=== PATIENT | female | born 1960 | race Caucasian/White ===

== ENCOUNTER 2018-01-10 18:53 | Emergency (ER) | payer BC ==
--- NOTE | 2018-01-10 19:31 | PDOC ---
Rapid Medical Evaluation Chief Complaint: Eye Problem Time Seen by Provider: 01/10/18 19:28 Medical Evaluation: 01/10/18 19:28 left eye redness and itchiness x 1 day. history of glaucoma Pe: redness to left sclera A: subconjuctival hemorrhage?? P: patient to the ER for further management of care. Discharge Disposition - Diagnosis Redness of eye, left - Referrals Referrals: Brent Raman MD [Primary Care Provider] - - Patient Instructions - Post Discharge Activity
[2018-01-10 19:32] VITALS: BP 133/73; PULSE 85; TEMP 98.2; BMI 27.4
[2018-01-10] MEDS ORDERED: FLUORESCEIN NA 1 EA STRIP OS ONE (20:56)
[2018-01-10] MEDS ORDERED: TETRACAINE 0.5% HCL 0.6ML DROPPER.BOTTLE OS ONE (20:56)
[2018-01-10] MEDS ORDERED: TETRACAINE 0.5% OPHTH SOLN 2 ML BOTTLE ONE (20:59)
--- NOTE | 2018-01-10 21:37 | PDOC ---
History of Present Illness - General History Source: Patient Exam Limitations: No Limitations - History of Present Illness Initial Comments: 01/10/18 22:00 Pt is a 57yo f with PMH of depression, ADHD bilateral cataracts s/p surgery presenting to ED with L eye redness. L eye started to turn red yesterday but has gotten worse. Pt denies pain, injury, foreign body sensation, vision loss, decreased vision, pain with movement, rashes, fevers, chills. Never happened before. Pt does not wear contacts, but wears glasses. 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 She is not using any eye drops. She had cataract surgery a few years ago. She is not taking blood thinners. PMD: Lamine PMH: see hpi PSH: cataract Meds: Strattera, Wellbutrin Social: denies Allergies: nkda <Caitlyn Coyne - Last Filed: 01/10/18 22:15> <Rain Brown - Last Filed: 01/10/18 23:14> - General Chief Complaint: Eye Problem Stated Complaint: Eye Problem Time Seen by Provider: 01/10/18 19:28 Past History - Past Medical History Cancer: Yes (rt breast) COPD: No Psychiatric Problems: Yes (PTSD/ADD/ADHD/Depression) - Suicide/Smoking/Psychosocial Hx Smoking History: Never smoked Have you smoked in the past 12 months: No Information on smoking cessation initiated: No Hx Alcohol Use: No Drug/Substance Use Hx: No Substance Use Type: None <Caitlyn Coyne - Last Filed: 01/10/18 22:15> <Rain Brown - Last Filed: 01/10/18 23:14> - Past Medical History Allergies/Adverse Reactions: Allergies Allergy/AdvReac Type Severity Reaction Status Date / Time No Known Allergies Allergy Verified 01/10/18 21:19 Home Medications: Ambulatory Orders NK [No Known Home Medication] 01/10/18 Review of Systems - Review of Systems Constitutional: No: Symptoms Reported HEENTM: Yes: See HPI, Other (L eye redness). No: Eye Pain, Blurred Vision, Tearing, Recent change in vision, Double Vision, Ear Pain Respiratory: No: Symptoms reported Cardiac (ROS): No: Symptoms Reported ABD/GI: No: Symptoms Reported : No: Symptoms Reported Musculoskeletal: No: Symptoms Reported Integumentary: No: Symptoms Reported Neurological: No: Symptoms reported <Caitlyn Coyne - Last Filed: 01/10/18 22:15> *Physical Exam - Vital Signs Last Vital Signs Temp Pulse Resp BP Pulse Ox 98.2 F 85 17 133/73 100 01/10/18 19:29 01/10/18 19:29 01/10/18 19:29 01/10/18 19:29 01/10/18 19:29 - Physical Exam General Appearance: Yes: Nourished, Appropriately Dressed. No: Apparent Distress HEENT: positive: EOMI, YAZMIN, TMs Normal, Other (L eye subconjunctival hemorrhage on medial side, not passing cornea. no pain with EOM. No foreign body seen, confirmed with fluorocein. Vision 20/40 ou. ). negative: Pale Conjunctivae, Photophobia, Scleral Icterus (R), Scleral Icterus (L), Sinus Tenderness, Orbits (no orbital tenderness) Neck: positive: Trachea midline, Supple. negative: Lymphadenopathy (R), Lymphadenopathy (L) Respiratory/Chest: positive: Lungs Clear, Normal Breath Sounds. negative: Crackles, Rales, Rhonchi, Stridor, Wheezing Cardiovascular: positive: Regular Rhythm, Regular Rate, S1, S2. negative: Edema , JVD, Murmur Vascular Pulses: Carotid (R): 2+, Carotid (L): 2+, Dorsalis-Pedis (R): 2+, Doralis-Pedis (L): 2+ Gastrointestinal/Abdominal: positive: Normal Bowel Sounds, Soft. negative: Guarding, Rebound, Tenderness Musculoskeletal: positive: Normal Inspection. negative: CVA Tenderness Extremity: positive: Normal Capillary Refill Integumentary: positive: Normal Color, Dry, Warm. negative: Rash Neurologic: positive: rack puller II-XII NML intact, Fully Oriented, Alert, Normal Mood/ Affect, Normal Response, Motor Strength 5/5 <Caitlyn Coyne - Last Filed: 01/10/18 22:15> - Vital Signs Last Vital Signs Temp Pulse Resp BP Pulse Ox 98.2 F 85 17 133/73 100 01/10/18 19:29 01/10/18 19:29 01/10/18 19:29 01/10/18 19:29 01/10/18 19:29 <Rain Brown - Last Filed: 01/10/18 23:14> ED Treatment Course - Medications Given in the ED: ED Medications Discontinued Medications Generic Name Dose Route Start Last Admin Trade Name Saritha PRN Reason Stop Dose Admin Fluorescein Sodium 1 ea 01/10/18 20:56 01/10/18 21:01 Fluorets - OS 01/10/18 20:57 1 ea ONCE ONE Administration Tetracaine HCl 1 drop 01/10/18 20:56 01/10/18 21:01 Tetravisc 0.5% Eye Drops - OS 01/10/18 20:57 1 drop ONCE ONE Administration <Rain Brown - Last Filed: 01/10/18 23:14> Medical Decision Making - Medical Decision Making 01/10/18 22:11 Pt is a 57yo f with PMH of depression, ADHD bilateral cataracts s/p surgery presenting to ED with L eye redness. L eye started to turn red yesterday but has gotten worse. Vitals: Selected Entries 01/10/18 19:29 Temperature 98.2 F Pulse Rate 85 Blood Pressure 133/73 Blood Pressure 93 Mean O2 Sat by Pulse 100 Oximetry (%) PE: subconjunctival hemorrhage on medial side of L eye, does not cross cornea , PERRLA, EOMI no pain with eye movements, normal conjunctiva, no swelling, no orbital tenderness, no foreign body seen. vision 20/40 OU. DDx: subconjunctival hemorrhage, Low suspicion for infectious process. no foreign body sensation, pt denies injury. Low suspicion for globe rupture or penetration. Fluorocein: no leaks. Pt globe intact, no penetration, no injury, no pain, no concern for infection. Pt has subconjunctival hemorrhage. She has an opthalmologist that she sees. Will follow up. Pt is hemodynamically stable and has follow up, can be dc home. Pt agrees with plan and understood return precautions. <Caitlyn Coyne - Last Filed: 01/10/18 22:15> *DC/Admit/Observation/Transfer - Discharge Dispostion Decision to Admit order: No <Caitlyn Coyne - Last Filed: 01/10/18 22:15> <Brown,Rain - Last Filed: 01/10/18 23:14> Diagnosis at time of Disposition: Redness of eye, left Subconjunctival hemorrhage Qualifiers: Laterality: left Qualified Code(s): H11.32 - Conjunctival hemorrhage, left eye - Discharge Dispostion Disposition: HOME Condition at time of disposition: Good - Referrals Referrals: Brent Raman MD [Primary Care Provider] - - Patient Instructions Printed Discharge Instructions: DI for Subconjunctival Hemorrhage Additional Instructions: You were seen here today for evaluation of eye redness. This is most likely subconjunctival hemorrhage. This will go away on its own. You do not need eye drops. I recommend you follow up with your opthalmologist for further evaluation and care. Come back to the emergency room if: redness gets worse, you have changes in your vision, you are unable to see out of your eye, you develop fever, or if any new concerning symptom develops. Thank you - Post Discharge Activity
--- NOTE | 2018-01-10 23:16 | PDOC ---
Attending Attestation - Resident Resident Name: Caitlyn Coyne - ED Attending Attestation I have performed the following: I have examined & evaluated the patient, The case was reviewed & discussed with the resident, I agree w/resident's findings & plan - Medical Decision Making 01/10/18 23:15 Pt has a RANDY; no corneal abrasion and no conjunctivitis. She will be asked to follow with her own residential electrician, as needed. She has no visual deficits and no other complaints. <Rain Brown - Last Filed: 01/10/18 23:15> - HPI HPI: 01/10/18 23:29 The patient is a 57 year old female with a significant PMH of depression and ADHD who presents to the emergency department with left eye redness since yesterday. The patient states that since yesterday her eye redness has worsened and is larger today. The patient endorses some associated itching . she denies any eye contacts. She also states that she does not recall getting any foreign bodies in her eye. The patient denies any other symptoms. She denies any fever chills, nausea, vomiting, diarrhea, constipation or urinary symptoms. She denies any chest pain, shortness of pain, headache or dizziness. The patient denies any other complaints. PCP: Dr. Raman - Physicial Exam PE: 01/10/18 23:30 GENERAL: Awake, alert, and fully oriented, in no acute distress HEAD: No signs of trauma EYES: PERRLA, EOMI, sclera anicteric, conjunctiva clear ENT: Auricles normal inspection, hearing grossly normal, nares patent, oropharynx clear without exudates. Moist mucosa NECK: Normal ROM, supple, no lymphadenopathy, JVD, or masses LUNGS: Breath sounds equal, clear to auscultation bilaterally. No wheezes, and no crackles HEART: Regular rate and rhythm, normal S1 and S2, no murmurs, rubs or gallops ABDOMEN: Soft, nontender, normoactive bowel sounds. No guarding, no rebound. No masses EXTREMITIES: Normal range of motion, no edema. No clubbing or cyanosis. No cords, erythema, or tenderness NEUROLOGICAL: Cranial nerves II through XII grossly intact. Normal speech, normal gait SKIN: Warm, Dry, normal turgor, no rashes or lesions noted. Documentation prepared by Angela Ibarra, acting as medical editor for Rain Brown MD. <Angela Ibarra - Last Filed: 01/10/18 23:30>
== END 2018-01-10 22:16 | disposition home or self-care (01) ==
LOC: JER 18:53
DX: H11.32 Conjunctival hemorrhage, left eye (principal); F32.9 Major depressive disorder, single episode, unspecified; F90.9 Attention-deficit hyperactivity disorder, unspecified type; F43.10 Post-traumatic stress disorder, unspecified; Z85.3 Personal history of malignant neoplasm of breast
CPT/HCPCS: 99281-25

== ENCOUNTER 2021-02-09 04:39 | Day surgery (SDC) | payer OTHER, MEDICARE ==
[2021-02-01 11:10] VITALS: BMI 30.7
[2021-02-09 10:59] VITALS: TEMP 97.3
[2021-02-09 11:34] VITALS: BP 121/69
[2021-02-09 11:39] VITALS: PULSE 65
== END 2021-02-09 12:00 | disposition home or self-care (01) ==
LOC: JASU-ENDO 04:39
PROVIDERS: ATTEND Internal Medicine Gastroenterology
PROC: 0DBH8ZX Excision of Cecum, Via Natural or Artificial Opening Endoscopic, Diagnostic (ICD-10-PCS; principal; 2021-02-09 09:45)
DX: Z12.11 Encounter for screening for malignant neoplasm of colon (principal); D12.0 Benign neoplasm of cecum; K63.89 Other specified diseases of intestine
CPT/HCPCS: 88305-TC

== ENCOUNTER 2021-07-11 11:49 | Emergency (ER) | payer MEDICARE ==
[2021-07-11 11:55] VITALS: BP 135/81; PULSE 75; TEMP 98; BMI 30.9
== END 2021-07-11 15:00 | disposition home or self-care (01) ==
LOC: JER 11:49
DX: R25.1 Tremor, unspecified (principal)
CPT/HCPCS: 82962; 99283-25

== ENCOUNTER → 2022-04-04 | Day surgery (SDC) | payer OTHER | END | disposition home or self-care (01) | LOC: JRADUS-SUR 10:49 | PROVIDERS: ATTEND Registered Nurse | PROC: 0H9T3ZX Drainage of Right Breast, Percutaneous Approach, Diagnostic (ICD-10-PCS; principal; 2022-04-04) | DX: C50.911 Malignant neoplasm of unspecified site of right female breast (principal) | CPT/HCPCS: 19083; 87899; 88305-TC; 88341-TC; 88342-TC; A4648 ==

== ENCOUNTER 2022-07-27 12:19 | Emergency (ER) | payer OTHER ==
[2022-07-27 13:00] VITALS: BMI 28.2
[2022-07-27 15:57] VITALS: BP 105/46; PULSE 81; RESP 18; TEMP 98.1
== END 2022-07-27 16:34 | disposition home or self-care (01) ==
LOC: JER 12:19
DX: S09.90XA Unspecified injury of head, initial encounter (principal); R11.0 Nausea; W01.198A Fall on same level from slipping, tripping and stumbling with subsequent striking against other object, initial encounter
CPT/HCPCS: 70450-TC; 70486-TC; 71046-TC-FY; 72125-TC; 72170-TC-FY; 73552-TC-LT-FY; 73590-TC-LT-FY; 93005; 93010; 99285-25